=== PATIENT | male | born 1970 | race American Indian/Alaskan Native ===

== ENCOUNTER 2017-07-30 16:06 | Emergency (ER) | payer SELFPAY ==
--- NOTE | 2017-07-30 16:57 | Emergency Department Report ---
Blank Doc - Documentation Documentation: Please a 70-year-old male presents to ED with low back pain for one week, after working with some logs, pain radiates to his left thigh, described pain as 8 out of 10, sharp, no alleviating factors, moving is an exacerbating factors. No loss of bowel, no loss of urine,
[2017-07-30] MEDS ORDERED: VALIUM PO ONE (19:00)
[2017-07-30 19:51] VITALS: BP 125/75
--- NOTE | 2017-07-30 20:09 | XRay Report ---
FINAL REPORT EXAM: XR SPINE LUMBOSACRAL 2-3V HISTORY: back pain/LUMBAR COMPARISON: None available. FINDINGS: Three views of the lumbar spine obtained. Lumbar vertebral body heights are preserved. Moderate loss of disc height and mild endplate osteophyte L5-S1 level. Pedicles are intact. No spondylolisthesis. Remaining disc heights are preserved. IMPRESSION: Moderate focal degenerative changes at the L5-S1 level. Lumbar vertebral body heights are preserved.
[2017-07-30] MEDS ORDERED: FLEXERIL PO ONE (20:45)
[2017-07-30] MEDS ORDERED: NORCO 5/325 PO ONE (20:45)
--- NOTE | 2017-07-30 20:45 | Emergency Department Report ---
ED Back Pain/Injury HPI - General Chief Complaint: Back Pain/Injury Stated Complaint: LEG PAIN Time Seen by Provider: 07/30/17 19:20 Source: patient, family Limitations: No Limitations - History of Present Illness Initial Comments: Please a 47-year-old male presents to ED with low back pain for one week, after working with some logs, pain radiates to his left thigh, described pain as 8 out of 10, sharp, no alleviating factors, moving is an exacerbating factors. No loss of bowel, no loss of urine, denies any abdominal pain, denies any urinary burning and frequency urgency. Denies any fever or chills. Denies any nausea or vomiting. [id number] pain medicine did not help. MD Complaint: back pain, back injury, other (left thigh pain) Onset/Timin -: week(s) Similar Symptoms Previously: No Place: other (outdoors) Radiation: other (left thigh) Severity: severe Severity scale (0 -10): 8 Quality: sharp, aching Consistency: intermittent Improves With: none, walking Worsens With: movement, walking Context: while lifting Associated Symptoms: difficulty walking. denies: confusion, weakness, chest pain, numbness, cough, difficulty urinating, diaphoresis, incontinence, fever/ chills, constipation, headaches, abdominal pain, loss of appetite, malaise, nausea/vomiting, rash, seizure, shortness of breath, syncope Treatments Prior to Arrival: NSAIDS - Related Data Previous Rx's Medication Instructions Recorded Last Taken Type HYDROcodone/APAP 10-325 [Milan 1 each PO Q6HR PRN #20 tablet 10/30/13 Unknown Rx 10-325 mg TAB] Acetaminophen/Codeine [Tylenol #3] 1 tab PO Q6H PRN #20 tab 02/04/15 Unknown Rx methylPREDNISolone [Medrol Dose 4 mg PO QDAY 6 Days pack 02/04/15 Unknown Rx Abraham] Cyclobenzaprine [Flexeril 10 MG 10 mg PO TID PRN #15 tablet 07/30/17 Unknown Rx TAB] Ibuprofen [Motrin 800 MG tab] 800 mg PO Q8HR PRN #15 tablet 07/30/17 Unknown Rx Allergies Allergy/AdvReac Type Severity Reaction Status Date / Time No Known Allergies Allergy Verified 07/30/17 16:17 ED Review of Systems ROS: Stated complaint: LEG PAIN Other details as noted in HPI Comment: All other systems reviewed and negative Constitutional: no symptoms reported Respiratory: no symptoms reported Cardiovascular: denies: chest pain, palpitations, dyspnea on exertion, edema, syncope, paroxysmal nocturnal dyspnea Gastrointestinal: denies: abdominal pain, nausea, vomiting, diarrhea, constipation Genitourinary: denies: dysuria, frequency, hematuria, discharge Musculoskeletal: back pain, arthralgia. denies: joint swelling, myalgia Skin: denies: rash Neurological: denies: headache, weakness, numbness, paresthesias, confusion, abnormal gait, vertigo ED Past Medical Hx - Past Medical History Previous Medical History?: No - Surgical History Past Surgical History?: No - Family History Family history: hypertension - Social History Smoking Status: Current Every Day Smoker Substance Use Type: Alcohol - Medications Home Medications: Home Medications Medication Instructions Recorded Confirmed Last Taken Type HYDROcodone/APAP 10-325 [Milan 1 each PO Q6HR PRN #20 tablet 10/30/13 Unknown Rx 10-325 mg TAB] Acetaminophen/Codeine [Tylenol #3] 1 tab PO Q6H PRN #20 tab 02/04/15 Unknown Rx methylPREDNISolone [Medrol Dose 4 mg PO QDAY 6 Days pack 02/04/15 Unknown Rx Abraham] Cyclobenzaprine [Flexeril 10 MG 10 mg PO TID PRN #15 tablet 07/30/17 Unknown Rx TAB] Ibuprofen [Motrin 800 MG tab] 800 mg PO Q8HR PRN #15 tablet 07/30/17 Unknown Rx ED Physical Exam - General Limitations: No Limitations General appearance: alert, in no apparent distress - Head Head exam: Present: atraumatic, normocephalic, normal inspection - Eye Eye exam: Present: normal appearance, PERRL, EOMI Pupils: Present: normal accommodation - ENT ENT exam: Present: normal exam, normal orophraynx, mucous membranes moist - Neck Neck exam: Present: normal inspection, full ROM, other (no C-spine tenderness). Absent: tenderness, meningismus, lymphadenopathy, thyromegaly - Respiratory Respiratory exam: Present: normal lung sounds bilaterally. Absent: respiratory distress, chest wall tenderness - Cardiovascular Cardiovascular Exam: Present: regular rate, normal rhythm, normal heart sounds. Absent: systolic murmur, diastolic murmur - GI/Abdominal GI/Abdominal exam: Present: soft, normal bowel sounds. Absent: distended, tenderness, guarding, rebound, rigid, organomegaly, mass, bruit, pulsatile mass , hernia - Extremities Exam Extremities exam: Present: normal inspection, full ROM, normal capillary refill , other (no clubbing, cyanosis or edema. Pulses 2+ distal extremities. No neurovascular compromise. +5 strength in all extremities. No laceration, contusion or abrasion.). Absent: tenderness, pedal edema, joint swelling, calf tenderness - Back Exam Back exam: Present: normal inspection, full ROM, other (ambulates without any difficulties). Absent: tenderness, CVA tenderness (R), CVA tenderness (L), muscle spasm, paraspinal tenderness, vertebral tenderness, rash noted - Expanded Back Exam Expanded Back exam: Absent: saddle anesthesia Back exam: Negative Straight Leg Raising: Left, Right - Neurological Exam Neurological exam: Present: alert, oriented X3, normal gait, reflexes normal. Absent: motor sensory deficit - Expanded Neurological Exam Expanded Neurological exam: Absent: innattentive, memory loss-remote event, memory loss- recent event, ataxia, receptive aphasia, expressive aphasia, total aphasia, tremor, protecting the airway Speech: Present: fluid speech Cranial nerves: EOM's Intact: Normal, Gag Reflex: Normal, Tongue Deviation: Normal, Nystagmus: Normal, Facial Sensation: Normal Cerebellar function: Romberg: Normal Upper motor neuron: Pronator Drift: Normal, Sensory Extinction: Normal Sensory exam: Upper Extremity Light Touch: Normal, Upper Extremity Temperature: Normal, UE 2 Point Discrimination: Normal, Lower Extremity Light Touch: Normal, Lower Extremity Temperature: Normal, LE 2 Point Discrimination: Normal Motor strength exam: RUE: 5, LUE: 5, RLE: 5, LLE: 5 DTR: bicep (R): 2+, bicep (L): 2+, tricep (R): 2+, tricep (L): 2+, knee (R): 2+ , knee (L): 2+, ankle (R): 2+, ankle (L): 2+ Best Eye Response (Garner): (4) open spontaneously Best Motor Response (Vamshi): (6) obeys commands Best Verbal Response (Vamshi): (5) oriented Garner Total: 15 - Psychiatric Psychiatric exam: Present: normal affect, normal mood - Skin Skin exam: Present: warm, dry, intact, normal color. Absent: rash ED Course Vital Signs 07/30/17 07/30/17 16:17 19:50 Temperature 98.2 F Pulse Rate 92 H 72 Respiratory 18 18 Rate Blood Pressure 118/70 Blood Pressure 125/75 [Left] O2 Sat by Pulse 97 98 Oximetry - Reevaluation(s) Reevaluation #1: 07/30/17 20:47 Patient remained stable throughout ED stay. He received Valium 2 mg by mouth in emergency room prior to x-ray. He was later given Flexeril 10 mg by mouth and Milan 5/325 2 tablets by mouth for lumbar radiculopathy. ED Medical Decision Making - Radiology Data Radiology results: report reviewed X-rays lumbar spine revealed moderate focal degenerative changes at the L5 to S1 level. Lumbar vertebral body height are preserved. No spondylosislisthesis. Remaining disc heights are preserved. - Medical Decision Making D course: Should he reports that he injured his lower back outdoors after lifting a heavy log. He reports pain has been ongoing for over a week and radiated into his left thigh. Patient wouldn't normal back and neurological exam. X-ray findings for degenerative changes to L5 to S1 without any fracture or subluxation. Previous referred to radiology section for complete report. Patient was given Valium 2 mg by mouth initially on arrival to emergency room and later given Flexeril 10 mg by mouth and 5/25 mg by mouth for pain. I discussed patient his x-ray report and that he will need to follow up with orthopedic doctor regarding in left lumbar radiculopathy. He voiced understanding and patient discharged home with his family with prescription for Flexeril and Motrin. Critical care attestation.: If time is entered above; I have spent that time in minutes in the direct care of this critically ill patient, excluding procedure time. ED Disposition Clinical Impression: Lower back pain Qualifiers: Chronicity: acute Back pain laterality: left Sciatica presence: with sciatica Sciatica laterality: sciatica of left side Qualified Code(s): M54.42 - Lumbago with sciatica, left side Disposition: - TO HOME OR SELFCARE Is pt being admited?: No Does the pt Need Aspirin: No Condition: Stable Instructions: Lumbar Radiculopathy (ED), Acute Low Back Pain (ED) Additional Instructions: Increase fluid intake Take medication as prescribed . please do not drive or operate heavy machinery while taking Flexeril as this medication causes drowsiness .t. These follow-up with orthopedic doctor as instructed. Rest for 72 hours Prescriptions: Cyclobenzaprine [Flexeril 10 MG TAB] 10 mg PO TID PRN #15 tablet PRN Reason: Muscle Spasm Ibuprofen [Motrin 800 MG tab] 800 mg PO Q8HR PRN #15 tablet PRN Reason: Pain Referrals: PRIMARY CAREMD [Primary Care Provider] - 2-3 Days PETER BARAHONA MD [Staff Physician] - 2-3 Days Forms: Work/School Release Form(ED)
== END 2017-07-30 21:08 | disposition home or self-care (01) ==
LOC: ED 16:06
DX: M54.42 Lumbago with sciatica, left side (principal); F17.200 Nicotine dependence, unspecified, uncomplicated
CPT/HCPCS: 72100